=== PATIENT | female | born 1940 | race Caucasian/White ===

== ENCOUNTER → 2016-11-05 | Outpatient (CLI) | payer MEDICARE ==
[~2016-11-05] MED LIST: ALENDRONATE SOD70 M1 PO; ASPIRIN81 M1 PO; COMBIVENT RESPIM4 GM INH; COREG12.5 M1 PO; COZAAR50 M1 PO; FLAGYL250 MG PO; FLONASE0.05 MG/AC NS; FOSAMAX70 M1 PO; HYDROCHLOROTHIA25 MG PO; KEFLEX500 MG PO; KLOR-CON M1010 MEQ PO; LEVOFLOXACIN500 MG PO; LISINOPRIL10 MG PO; LOSARTAN POTASS50 M1 PO; MOTRIN100 M1 PO; NEXIUM40 MG PO; OXYBUTYNIN5 MG PO; PAXIL20 M1 PO; PROAIR HFA0.09 MG/AC IH; SIMVASTATIN40 MG PO; TRAMADOL HCL50 MG PO; VERAPAMIL ER240 MG PO; VITAMIN D32000 UNIT PO; XANAX0.25 MG PO; XANAX0.5 MG PO
[2016-11-05 09:57] LABS: BASO # 0.1 10*3/uL (0.0-0.1); BASO % 2.4 % (0.0-1.0); EOS # 0.2 10*3/uL (0.0-0.4); EOS % 3.8 % (1.0-4.0); HEMATOCRIT 39.4 % (37.0-47.0); HEMOGLOBIN 12.7 g/dl (12.0-16.0); LYMPH # 1.6 10*3/uL (1.3-4.4); LYMPH % 37.9 % (27.0-41.0); MEAN CORPUSCULAR HGB 31.6 pg (27.0-31.0); MEAN CORPUSCULAR HGB CONC 32.2 g/dl (33.0-37.0); MEAN PLATELET VOLUME 10.1 fl (9.6-12.3); MONO # 0.4 10*3/uL (0.1-1.0); MONO % 9.9 % (3.0-9.0); NEUT % 45.8 % (47.0-73.0); PLATELET COUNT AUTOMATED 136 10*3/uL (130-400); RED BLOOD COUNT 4.02 10*6/uL (4.10-5.10); RED CELL DISTRI WIDTH 13.9 % (0-14.5); WHITE BLOOD COUNT 4.3 10*3/uL (4.8-10.8)
[2016-11-05 10:29] LABS: POTASSIUM 3.5 mmol/L (3.5-5.1)
== END | disposition home or self-care (01) ==
LOC: LAB 08:59
PROVIDERS: Internal Medicine Cardiovascular Disease
DX: I10 Essential (primary) hypertension (principal); R53.83 Other fatigue

== ENCOUNTER → 2016-11-07 | Outpatient (CLI) | payer MEDICARE ==
--- NOTE | ~2016-11-07 | ST ---
[place], [place] EXERCISE STRESS TEST REPORT NAME: VICTORINA GONZALEZ UNIT #: [id number] ROOM: DOCTOR: ANCELMO MURO [facility],[place] BIRTHDATE: [birth year] DOS: 11/07/2016 BRIAN SCAN SESTAMIBI Received Lexiscan 0.4 mg over 10 seconds. Heart rate is 60. No ischemic changes on the EKG. No complications noted. Isotope was injected. Myocardial perfusion scan to follow. NENITA AG MD CM:STRESS:EXERCISE STRESS TEST REPORT [id number] [facility]
== END | disposition home or self-care (01) ==
LOC: CARD 01:41
DX: R07.9 Chest pain, unspecified (principal); R06.2 Wheezing; I10 Essential (primary) hypertension; R53.83 Other fatigue; R53.81 Other malaise; R00.2 Palpitations

== ENCOUNTER → 2017-03-24 | Outpatient (CLI) | payer MEDICARE | END | disposition home or self-care (01) | LOC: US 12:46 | DX: I65.23 Occlusion and stenosis of bilateral carotid arteries (principal) ==

== ENCOUNTER 2017-06-02 13:44 | Inpatient (IN) | payer MEDICARE ==
[~2017-06-02] VITALS: Ht 167.6 cm; Wt 52.3 kg
--- NOTE | ~2017-06-02 | CON ---
[place], [place] REPORT OF CONSULTATION NAME: VICTORINA GONZALEZ UNIT #: [id number] ROOM: 506 [facility] [birth year] DOS: HISTORY OF PRESENT ILLNESS: The patient came in with recurrent precordial chest pain substernal, burning sensation on and off for the last 2 months that got progressively worse for the last 2 weeks and prior to coming to the emergency room ____ more than 2 hours. The patient also has dyspnea and fatigue. No syncopal presyncope. The patient has myocardial infarction 6 years ago and the patient did not have any recent workup to evaluate for ischemia or disease, but represented with progressive increase in troponin. Subsequently, ____ but the renal function is good. GFR and creatinine is normal. The patient with a previous history of coronary artery disease, gastroesophageal reflux disease, anxiety, hypertension, depression, and dyslipidemia. PAST SURGICAL HISTORY: Appendectomy, cholecystectomy, and hysterectomy. SOCIAL HISTORY: No alcohol or drug abuse. Light smoker for 10 years, quit since 2010. FAMILY HISTORY: Father of old age. Mother with history of emphysema. Brother with history of myocardial infarction. Son at 42, who had a heart attack. ALLERGIES: THE PATIENT IS ALLERGIC TO IVP DYE, PENICILLIN, LISINOPRIL, AND NAPROXEN. MEDICATIONS: The patient is on albuterol, 81 mg of aspirin, Xanax, carvedilol, vitamin D3, Losartan, paroxetine, and simvastatin 40 mg daily at bedtime. PHYSICAL EXAMINATION: VITAL SIGNS: Stable. GENERAL: Alert, not in any acute distress. NECK: Supple. LUNGS: No rales. HEART: S1, S2 regular. No gallops. ABDOMEN: Soft. Color is good, not diaphoretic. RECTAL AND GENITAL: Deferred. SKIN: Warm and dry. EXTREMITIES: No cyanosis. NEUROLOGICAL: No gross focal neurological deficit noted. LABORATORY DATA: Troponin went up to 0.09 and 0.09. CBC and renal function is unremarkable. DIAGNOSES: Acute coronary syndrome, non-ST elevation myocardial infarction ____, history of coronary artery disease, hypertension, dyslipidemia. PLAN: Coronary arteriography, possible revascularization. Options, procedure, complications, morbidity, mortality, and risks were explained. [place], [place] REPORT OF CONSULTATION NAME: VICTORINA GONZALEZ UNIT #: [id number] ROOM: 506 DOCTOR: ANCELMO MURO [facility],[place] BIRTHDATE: [birth year] NENITA AG MD CM:CONSTR:REPORT OF CONSULTATION 1055 06/03/17 1445 interface SERENA HEBERT DO and ANGELA SAMAYOA DO
--- NOTE | ~2017-06-02 | EKG ---
[place], [place] ELECTROCARDIOGRAM REPORT NAME: VICTORINA GONZALEZ UNIT #: [id number] ROOM: 506 DOCTOR: ANCELMO MURO [facility],[place] BIRTHDATE: [birth year] DOS: 06/02/2017 TIME: 1659 CONCLUSION: 1. Sinus rhythm. 2. Left ventricular hypertrophy, cannot exclude old inferior wall infarction. 3. ST changes for lateral leads may suggest myocardial ischemia and PACs. NENITA AG MD CM:EKGRPT:ELECTROCARDIOGRAM REPORT [id number] 1357 NENITA AG MD [facility]
--- NOTE | ~2017-06-02 | EKG ---
[place], [place] ELECTROCARDIOGRAM REPORT NAME: VICTORINA GONZALEZ UNIT #: [id number] ROOM: 506 DOCTOR: ANCELMO MURO [facility],[place] BIRTHDATE: [birth year] DOS: 06/02/2017 TIME: 1939 CONCLUSION: 1. Sinus rhythm. 2. Left ventricular hypertrophy may be considered. 3. Intraventricular conduction delay and ST changes for lateral leads were made, suggest myocardial ischemia. NENITA AG MD CM:EKGRPT:ELECTROCARDIOGRAM REPORT [id number] 1353 NENITA AG MD [facility]
--- NOTE | ~2017-06-02 | EKG ---
[place], [place] ELECTROCARDIOGRAM REPORT NAME: VICTORINA GONZALEZ UNIT #: [id number] ROOM: 506 DOCTOR: ANCELMO MURO [facility],[place] BIRTHDATE: [birth year] DOS: 06/02/2017 TIME: 1354 CONCLUSION: 1. Sinus rhythm. 2. Cannot exclude old inferior wall infarction. 3. Left ventricular hypertrophy. 4. Left axis ST changes suggest myocardial ischemia. NENITA AG MD CM:EKGRPT:ELECTROCARDIOGRAM REPORT [id number] 1359 NENITA AG MD [facility]
[2017-06-02 14:13] VITALS: BP 195/84
[2017-06-02 14:22] LABS: BASO # 0.1 10*3/uL (0.0-0.1); BASO % 1.2 % (0.0-1.0); EOS # 0.1 10*3/uL (0.0-0.4); EOS % 1.8 % (1.0-4.0); HEMATOCRIT 39.3 % (37.0-47.0); HEMOGLOBIN 13.2 g/dl (12.0-16.0); LYMPH # 1.9 10*3/uL (1.3-4.4); LYMPH % 28.1 % (27.0-41.0); MEAN CELL VOLUME 95.2 fl (81.0-99.0); MEAN CORPUSCULAR HGB CONC 33.6 g/dl (33.0-37.0); MEAN PLATELET VOLUME 11.3 fl (9.6-12.3); MONO # 0.7 10*3/uL (0.1-1.0); MONO % 9.6 % (3.0-9.0); NEUT % 59.2 % (47.0-73.0); PLATELET COUNT AUTOMATED 239 10*3/uL (130-400); RED BLOOD COUNT 4.13 10*6/uL (4.10-5.10); RED CELL DISTRI WIDTH 14.4 % (0-14.5); WHITE BLOOD COUNT 6.8 10*3/uL (4.8-10.8)
[2017-06-02 14:57] LABS: ACT PARTIAL THROMBO TIME 25.5 SECONDS (20.8-31.5); INTERNATIONAL NORM RATIO 1.2 (2.0-3.5)
[2017-06-02 15:15] LABS: ALBUMIN 3.4 gm/dl (3.1-4.5); ALKALINE PHOSPHATASE 44 U/L (45-117); BUN 16 mg/dl (7-24); CHLORIDE 107 mmol/L (98-107); CREATININE 1.04 mg/dL (0.55-1.02); SGOT/AST 23 IU/L (3-35); SGPT/ALT 24 U/L (12-78); SODIUM 142 mmol/L (136-145); TOTAL PROTEIN 7.1 gm/dL (6.4-8.2)
[2017-06-02 15:16] LABS: TROPONIN I 0.025 ng/ml (<0.045)
[2017-06-02 15:24] VITALS: BP 152/90
[2017-06-02 16:04] VITALS: BP 160/97
[2017-06-02 17:15] VITALS: BP 120/86
[2017-06-02] MEDS ORDERED: MEGACE40 MG PO (18:02)
[2017-06-02] MEDS ORDERED: IMDUR SA30 MG PO (18:03)
[2017-06-02 19:42] VITALS: BP 151/92
[2017-06-03] VITALS: BP 150/74
[2017-06-03 00:27] LABS: CKMB 1.2 ng/ml (0.5-3.6)
[2017-06-03 00:32] LABS: TROPONIN I 0.09 ng/ml (<0.045)
[2017-06-03 06:29] LABS: BASO # 0.1 10*3/uL (0.0-0.1); BASO % 0.7 % (0.0-1.0); EOS # 0.2 10*3/uL (0.0-0.4); EOS % 1.5 % (1.0-4.0); HEMATOCRIT 38.1 % (37.0-47.0); HEMOGLOBIN 12.4 g/dl (12.0-16.0); LYMPH # 1.9 10*3/uL (1.3-4.4); LYMPH % 19.2 % (27.0-41.0); MEAN CELL VOLUME 96.9 fl (81.0-99.0); MEAN CORPUSCULAR HGB 31.6 pg (27.0-31.0); MEAN CORPUSCULAR HGB CONC 32.5 g/dl (33.0-37.0); MEAN PLATELET VOLUME 10.3 fl (9.6-12.3); MONO # 1.1 10*3/uL (0.1-1.0); NEUT # 6.7 10*3/uL (2.3-7.9); NEUT % 67.3 % (47.0-73.0); RED BLOOD COUNT 3.93 10*6/uL (4.10-5.10); RED CELL DISTRI WIDTH 14.2 % (0-14.5)
[2017-06-03 06:38] LABS: PLATELET COUNT AUTOMATED 158 10*3/uL (130-400)
[2017-06-03 06:53] LABS: ALBUMIN 2.9 gm/dl (3.1-4.5); ALKALINE PHOSPHATASE 36 U/L (45-117); BUN 16 mg/dl (7-24); CHLORIDE 111 mmol/L (98-107); FREE T4 0.98 ng/dl (0.76-1.46); PHOSPHOROUS 3.2 mg/dL (2.5-4.9); POTASSIUM 3.9 mmol/L (3.5-5.1); SGOT/AST 22 IU/L (3-35); SGPT/ALT 20 U/L (12-78); SODIUM 142 mmol/L (136-145); TOTAL PROTEIN 6.1 gm/dL (6.4-8.2)
[2017-06-03 08:00] VITALS: BP 115/98
[2017-06-03 08:15] LABS: VITAMIN D, 25-HYDROXY 53.3 ng/mL (30-100)
[2017-06-03 11:39] LABS: BASO # 0.1 10*3/uL (0.0-0.1); BASO % 0.8 % (0.0-1.0); EOS # 0.1 10*3/uL (0.0-0.4); EOS % 1.7 % (1.0-4.0); HEMATOCRIT 38.4 % (37.0-47.0); HEMOGLOBIN 12.6 g/dl (12.0-16.0); LYMPH # 1.4 10*3/uL (1.3-4.4); LYMPH % 17.1 % (27.0-41.0); MEAN CELL VOLUME 96.5 fl (81.0-99.0); MEAN CORPUSCULAR HGB 31.7 pg (27.0-31.0); MEAN CORPUSCULAR HGB CONC 32.8 g/dl (33.0-37.0); MEAN PLATELET VOLUME 9.7 fl (9.6-12.3); MONO # 0.7 10*3/uL (0.1-1.0); MONO % 8.5 % (3.0-9.0); NEUT # 6.1 10*3/uL (2.3-7.9); NEUT % 71.7 % (47.0-73.0); PLATELET COUNT AUTOMATED 156 10*3/uL (130-400); RED BLOOD COUNT 3.98 10*6/uL (4.10-5.10); RED CELL DISTRI WIDTH 14.2 % (0-14.5); WHITE BLOOD COUNT 8.4 10*3/uL (4.8-10.8)
[2017-06-03 11:48] LABS: ACT PARTIAL THROMBO TIME 30.6 SECONDS (20.8-31.5); INTERNATIONAL NORM RATIO 1.2 (2.0-3.5)
[2017-06-03 12:00] VITALS: BP 108/48
[2017-06-03 16:00] VITALS: BP 108/48
[2017-06-03 20:00] VITALS: BP 123/58
[2017-06-04] VITALS: BP 126/60
[2017-06-04 04:00] VITALS: BP 147/70
== END 2017-06-04 05:30 | disposition other institution (70) | DRG 189 ==
LOC: ED 13:44 → EDHOLD 15:33 → 5E 15:33
PROVIDERS: Internal Medicine; Internal Medicine Cardiovascular Disease; Student in an Organized Health Care Education/Training Program
DX: J96.00 Acute respiratory failure, unspecified whether with hypoxia or hypercapnia (principal); I24.9 Acute ischemic heart disease, unspecified; I50.22 Chronic systolic (congestive) heart failure; I13.0 Hypertensive heart and chronic kidney disease with heart failure and stage 1 through stage 4 chronic kidney disease, or unspecified chronic kidney disease; J44.1 Chronic obstructive pulmonary disease with (acute) exacerbation; E83.41 Hypermagnesemia; I16.1 Hypertensive emergency; Z68.1 Body mass index [BMI] 19.9 or less, adult; N18.3 Chronic kidney disease, stage 3 (moderate); R07.9 Chest pain, unspecified; R73.9 Hyperglycemia, unspecified; K21.9 Gastro-esophageal reflux disease without esophagitis; I25.119 Atherosclerotic heart disease of native coronary artery with unspecified angina pectoris; R63.6 Underweight; F32.9 Major depressive disorder, single episode, unspecified; M81.0 Age-related osteoporosis without current pathological fracture; F41.1 Generalized anxiety disorder; E78.00 Pure hypercholesterolemia, unspecified; I25.2 Old myocardial infarction; Z90.49 Acquired absence of other specified parts of digestive tract; Z90.710 Acquired absence of both cervix and uterus; Z79.82 Long term (current) use of aspirin; Z87.891 Personal history of nicotine dependence; Z79.899 Other long term (current) drug therapy; Z88.0 Allergy status to penicillin; Z88.8 Allergy status to other drugs, medicaments and biological substances; Z91.041 Radiographic dye allergy status; Z82.49 Family history of ischemic heart disease and other diseases of the circulatory system; Z83.6 Family history of other diseases of the respiratory system

== ENCOUNTER 2019-02-26 01:40 | Inpatient (IN) | payer MEDICARE ==
[~2019-02-26] VITALS: Ht 167.6 cm; Wt 39.6 kg
[~2019-02-26 01:40] MED LIST changes: +ACCUNEB 0.1.25 MG/1 INH; +FLONASE ALLERG9.9 ML NAS; +IMDUR SA30 MG PO; +LEXAPRO20 MG PO; +MEGACE40 MG PO; +POTASSIUM CHLO10 ME5 PO; +PREDNISONE10 MG PO; +PROAIR HFA8.5 GM INH; +SYMB160 INH; +VIBRAMYCIN100 MG PO; +VITAMIN D5000 UNIT PO; +ZOFRAN4 MG PO
[2019-02-26 01:45] VITALS: BP 182/74
[2019-02-26 02:07] LABS: BASO % 0.6 % (0.0-1.0); EOS # 0.1 10*3/uL (0.0-0.4); EOS % 1.4 % (1.0-4.0); HEMATOCRIT 43.9 % (37.0-47.0); HEMOGLOBIN 13.3 g/dl (12.0-16.0); MEAN CORPUSCULAR HGB 31.8 pg (27.0-31.0); MEAN CORPUSCULAR HGB CONC 30.3 g/dl (33.0-37.0); MEAN PLATELET VOLUME 10.2 fl (9.6-12.3); MONO # 0.7 10*3/uL (0.1-1.0); MONO % 9.3 % (3.0-9.0); NEUT # 4.5 10*3/uL (2.3-7.9); NEUT % 61.6 % (47.0-73.0); PLATELET COUNT AUTOMATED 121 10*3/uL (130-400); RED BLOOD COUNT 4.18 10*6/uL (4.10-5.10); RED CELL DISTRI WIDTH 14.1 % (0-14.5); WHITE BLOOD COUNT 7.2 10*3/uL (4.8-10.8)
[2019-02-26 02:21] LABS: ALBUMIN 3.5 gm/dl (3.1-4.5); ALKALINE PHOSPHATASE 46 U/L (45-117); BUN 25 mg/dl (7-24); CHLORIDE 107 mmol/L (98-107); CREATININE 0.92 mg/dL (0.55-1.02); POTASSIUM 4.2 mmol/L (3.5-5.1); SGOT/AST 41 IU/L (3-35); SGPT/ALT 48 U/L (12-78); SODIUM 146 mmol/L (136-145); TOTAL PROTEIN 6.8 gm/dL (6.4-8.2)
[2019-02-26 02:22] LABS: TROPONIN I 0.031 ng/ml (<0.045)
[2019-02-26 02:25] LABS: ACT PARTIAL THROMBO TIME 25.6 SECONDS (20.0-32.1); INTERNATIONAL NORM RATIO 1.1 (2.0-3.5)
--- NOTE | 2019-02-26 03:00 | NUR ---
REPORT FROM RIDDHI RN, ASSUMED CARE OF PT, PT RESTING QUIETLY, WITH FAMILY AT BEDSIDE, CALL NOONAN IN REACH
--- NOTE | 2019-02-26 03:10 | NUR ---
RESP IN TO DRAW ABG ORDERED
[2019-02-26 03:24] LABS: ABG BASE EXCESS 6.4 mmol/L (-2.0-2.0); ABG HCO3 33.4 mmol/l (22-26); ABG O2 SATURATION 98.1 % (95-97); ARTERIAL BLOOD GAS PCO2 62.1 mmHg (35-45); ARTERIAL BLOOD GAS PH 7.35 (7.35-7.45)
[2019-02-26 03:42] VITALS: BP 165/62
--- NOTE | 2019-02-26 04:15 | NUR ---
Time: 414 A 78 year old FEMALE admitted to 5E under services of EDWIGE CORTEZ DO. Pt. arrived via stretcher from ER. Chief complaint: DON. KRISTINE VILLALTA
--- NOTE | 2019-02-26 04:15 | NUR ---
PT ADMITTED TO 5TH FLOOR ON TELE,SR, RESP EASY ON 2 L/NC, SALINE LOCK PATENT WITH 0.9NS AND LEVAQUIN INFUSING VIA PUMP ORDERED, WITH NO REDNESS OR SWELLING, BELONGINGS WITH PT
--- NOTE | 2019-02-26 05:16 | NUR ---
CRITICAL LAB RECEIVED TROPONIN 0.069.
--- NOTE | 2019-02-26 05:18 | NUR ---
NOTIFIED OF CRTICAL TRPONIN OF 0.069.
--- NOTE | 2019-02-26 06:26 | NUR ---
PT TRANSFERRED TO UNIT PER DR. CARABALLO FOR CLOSER OBSERVATION AT THIS TIME. BELONGINGS SENT WITH PT. EXPLAINED TO PT REASON FOR BEING TRANSFERRED.
[2019-02-26 06:30] VITALS: BP 102/70
--- NOTE | 2019-02-26 06:55 | NUR ---
RECEIVED IN CCU#5 VAI BED WITH BELONGINGSG. CALL LIGHT IN REACH. ORIENTED TO ROOM. IV FLUIDS INFUSING. 2ND IV STARTED RFA WTIH #22 ANGIO AFTER ROUTINE PREP. STERIL DRSG TO SITE. HEPAIN GTT STARTED PER ORDERED. PT RESTING IN BED WITH HOB ELEVATED. DENIES C/O'S CHEST PAIN OR DISCOMFORT. PULSE OX 100% OB 2L.
[2019-02-26] MEDS ORDERED: ABILIFY5 MG PO (07:11)
--- NOTE | 2019-02-26 07:12 | NUR ---
DR. AG NOTIFIED OF CONSULT. TO BE CALLED WITH NEXT TROPONIN.
--- NOTE | 2019-02-26 07:13 | NUR ---
DR. BETH NOTIFIED OF CONSULT.
[2019-02-26 08:24] LABS: BASO % 0.3 % (0.0-1.0); EOS % 0.1 % (1.0-4.0); HEMATOCRIT 40.3 % (37.0-47.0); HEMOGLOBIN 12.4 g/dl (12.0-16.0); LYMPH # 0.7 10*3/uL (1.3-4.4); LYMPH % 9.4 % (27.0-41.0); MEAN CELL VOLUME 103.6 fl (81.0-99.0); MEAN CORPUSCULAR HGB 31.9 pg (27.0-31.0); MEAN CORPUSCULAR HGB CONC 30.8 g/dl (33.0-37.0); MEAN PLATELET VOLUME 10.4 fl (9.6-12.3); MONO # 0.1 10*3/uL (0.1-1.0); MONO % 0.8 % (3.0-9.0); NEUT # 6.5 10*3/uL (2.3-7.9); PLATELET COUNT AUTOMATED 106 10*3/uL (130-400); RED BLOOD COUNT 3.89 10*6/uL (4.10-5.10); WHITE BLOOD COUNT 7.3 10*3/uL (4.8-10.8)
--- NOTE | 2019-02-26 08:30 | NUR ---
message left for Dr Dickinson
[2019-02-26 08:36] LABS: ALBUMIN 3.1 gm/dl (3.1-4.5); ALKALINE PHOSPHATASE 34 U/L (45-117); BUN 22 mg/dl (7-24); CHLORIDE 105 mmol/L (98-107); CHOLESTEROL 130 mg/dL (<200); CREATININE 0.69 mg/dL (0.55-1.02); HDL CHOLESTEROL 82 mg/dl (40-60); LDL CHOLESTEROL 41 mg/dL (9-159); SGOT/AST 37 IU/L (3-35); SGPT/ALT 42 U/L (12-78); SODIUM 142 mmol/L (136-145); TOTAL PROTEIN 6.2 gm/dL (6.4-8.2); TRIGLYCERIDES 36 mg/dl (<150); VLDL CHOLESTEROL 7 mg/dL (6-40)
[2019-02-26 09:06] LABS: VITAMIN D, 25-HYDROXY 53.9 ng/mL (30-100)
--- NOTE | 2019-02-26 09:34 | NUR ---
PHYSICAL THERAPY Nursing screen received and chart reviewed. Physical therapy order received when patient was on floor 5. Patient transferred to ICCU after order received. Please re-order PT evaluation when medically stable and able to participate. Thank you. Thuy Steven,PT,DPT
[2019-02-26 11:37] LABS: BILIRUBIN NEGATIVE (NEGATIVE); BLOOD NEGATIVE (NEGATIVE); CLARITY CLEAR (CLEAR); COLOR YELLOW (YELLOW); GLUCOSE NEGATIVE (NEGATIVE); KETONE NEGATIVE (NEGATIVE); LEUKO ESTERASE NEGATIVE (NEGATIVE); NITRITE NEGATIVE (NEGATIVE); UROBILINOGEN 0.2 E.U./dl (0.2-1.0)
[2019-02-26 11:45] LABS: BACTERIA TRACE; MUCOUS TRACE
--- NOTE | 2019-02-26 11:54 | NUR ---
Dr Dickinson called in earlier. Dr Giraldo aware of what Dr Dickinson said. Meds started per orders. Patient sitting up in bed - weak when getting up - will encourage Walker when up
[2019-02-26 12:00] VITALS: BP 156/61
--- NOTE | 2019-02-26 14:40 | NUR ---
MOVES TO 525 VIA WHEEL CHAIR -JOSUE ECKERT
[2019-02-26 16:00] VITALS: BP 136/44
[2019-02-26 20:00] VITALS: BP 124/60
[2019-02-27] VITALS: BP 136/64
[2019-02-27 08:00] VITALS: BP 118/52
--- NOTE | 2019-02-27 10:12 | NUR ---
DR MELISSA ROUNDED AND SEEN PT. ORDERES RECIEVED.
--- NOTE | 2019-02-27 11:25 | NUR ---
SPOKE TO DAUGHTER AT BEDSIDE. UPDATED FAMILY AND PT ON PLAN OF CARE.RESPS EASY ON RA.VOICES NO OTHER NEEDS AT THIS TIME. CALL LIGHT IN REACH.
[2019-02-27 12:00] VITALS: BP 103/50
--- NOTE | 2019-02-27 14:52 | NUR ---
PT UP IN CHAIR AT BEDSIDE. VOICES NO C/O.RESPS EASY ON 2LNC.TOLERATING WELL.CALL LIGHT IN REACH.
--- NOTE | 2019-02-27 15:32 | NUR ---
ASSISTED PT BACK TO BED. PT TOLERATED WELL. PT ACTUALLY A STANDBY ASSIST. GAIT SLOW AND STEADY.RESPS EASY ON 2L.DENIES SOB.VOICES NO OTHER NEEDS AT THIS TIME. CALL LIGHT IN REACH.
[2019-02-27 16:00] VITALS: BP 138/56
[2019-02-27 20:00] VITALS: BP 120/59
[2019-02-28] VITALS: BP 112/53
[2019-02-28 08:00] VITALS: BP 128/64
--- NOTE | 2019-02-28 09:00 | NUR ---
UPON ENTERING ROOM, PT IS AWAKE, ALERT AND ORIENTED. SPEECH IS APPROPRIATE. NO STATED COMPLAINTS. NO S/S OF DISTRESS OR SOB. 2L NC INTACT. DENIES PAIN AT THIS TIME. BED IN LOWEST LOCKED POSITION AND CALL LIGHT WITHIN REACH. WILL CONTINUE TO MONITOR.
[2019-02-28] MEDS ORDERED: DOXYCYCLINE100 M3 PO (09:49)
[2019-02-28] MEDS ORDERED: IMDUR SA60 M1 PO (09:49)
[2019-02-28] MEDS ORDERED: CLOPIDOGREL75 MG PO (09:49)
[2019-02-28] MEDS ORDERED: PREDNISONE10 MG PO (09:49)
--- NOTE | 2019-02-28 11:30 | NUR ---
PT'S DAUGHTER NOTIFIED OF DISCHARGE.
--- NOTE | 2019-02-28 12:50 | NUR ---
Discharge instructions reviewed with patient/family. Patient receptive and verbalizes understanding. Follow-up care arranged. Written instructions given to patient/family. DEE ESTEVEZ
== END 2019-02-28 13:23 | disposition home or self-care (01) | DRG 193 ==
LOC: ED 01:40 → ICCU 03:22 → EDHOLD 03:22 → 5E 03:32 → ICCU 06:25 → 5E 14:11
PROVIDERS: Emergency Medicine Emergency Medical Services; Internal Medicine; ADMIT Internal Medicine
DX: J18.9 Pneumonia, unspecified organism (principal); J96.21 Acute and chronic respiratory failure with hypoxia; J96.22 Acute and chronic respiratory failure with hypercapnia; J44.1 Chronic obstructive pulmonary disease with (acute) exacerbation; J44.0 Chronic obstructive pulmonary disease with (acute) lower respiratory infection; E87.0 Hyperosmolality and hypernatremia; I42.9 Cardiomyopathy, unspecified; Z68.1 Body mass index [BMI] 19.9 or less, adult; R73.9 Hyperglycemia, unspecified; N18.3 Chronic kidney disease, stage 3 (moderate); I12.9 Hypertensive chronic kidney disease with stage 1 through stage 4 chronic kidney disease, or unspecified chronic kidney disease; E78.00 Pure hypercholesterolemia, unspecified; I25.10 Atherosclerotic heart disease of native coronary artery without angina pectoris; J45.40 Moderate persistent asthma, uncomplicated; D75.89 Other specified diseases of blood and blood-forming organs; F32.9 Major depressive disorder, single episode, unspecified; D69.6 Thrombocytopenia, unspecified; I44.7 Left bundle-branch block, unspecified; J20.9 Acute bronchitis, unspecified; F41.1 Generalized anxiety disorder; M81.0 Age-related osteoporosis without current pathological fracture; R63.6 Underweight; Z87.891 Personal history of nicotine dependence; Z99.81 Dependence on supplemental oxygen; Z88.0 Allergy status to penicillin; Z88.8 Allergy status to other drugs, medicaments and biological substances; Z88.6 Allergy status to analgesic agent; Z91.041 Radiographic dye allergy status; Z87.01 Personal history of pneumonia (recurrent); Z90.49 Acquired absence of other specified parts of digestive tract; Z90.710 Acquired absence of both cervix and uterus; Z82.5 Family history of asthma and other chronic lower respiratory diseases; Z82.49 Family history of ischemic heart disease and other diseases of the circulatory system; Z79.899 Other long term (current) drug therapy; Z79.82 Long term (current) use of aspirin

== ENCOUNTER 2019-03-02 10:11 | Inpatient (IN) | payer MEDICARE ==
[2019-03-02] VITALS (8 sets, daily range): BP systolic 103–192; BP diastolic 60–96
[~2019-03-02] VITALS: Ht 167.6 cm; Wt 41.7 kg
[~2019-03-02 10:11] MED LIST changes: +ABILIFY5 MG PO; +CLOPIDOGREL75 MG PO; +DOXYCYCLINE100 M3 PO; +IMDUR SA60 M1 PO
--- NOTE | 2019-03-02 10:50 | NUR ---
DR GTZ SPOKE TO FAMILY WHERE THE FAMILY STATED THAT THE PT HAS VERBALLY TOLD THEM THAT SHE WANTS TO BE A FULL CODE AND THE PT WANTS ALL INTERVENTIONS THAT ARE NEEDED.
[2019-03-02 10:54] LABS: BASO % 0.1 % (0.0-1.0); EOS % 0.1 % (1.0-4.0); HEMATOCRIT 41.2 % (37.0-47.0); HEMOGLOBIN 12.7 g/dl (12.0-16.0); LYMPH # 0.9 10*3/uL (1.3-4.4); MEAN CORPUSCULAR HGB 32.1 pg (27.0-31.0); MEAN CORPUSCULAR HGB CONC 30.8 g/dl (33.0-37.0); MEAN PLATELET VOLUME 10.4 fl (9.6-12.3); MONO # 0.7 10*3/uL (0.1-1.0); MONO % 6.2 % (3.0-9.0); NEUT # 8.7 10*3/uL (2.3-7.9); NEUT % 83.4 % (47.0-73.0); PLATELET COUNT AUTOMATED 124 10*3/uL (130-400); RED BLOOD COUNT 3.96 10*6/uL (4.10-5.10); RED CELL DISTRI WIDTH 14.1 % (0-14.5); WHITE BLOOD COUNT 10.4 10*3/uL (4.8-10.8)
[2019-03-02 11:05] LABS: ALBUMIN 2.7 gm/dl (3.1-4.5); ALKALINE PHOSPHATASE 35 U/L (45-117); BUN 23 mg/dl (7-24); CHLORIDE 105 mmol/L (98-107); CREATININE 0.72 mg/dL (0.55-1.02); POTASSIUM 4.2 mmol/L (3.5-5.1); SGOT/AST 75 IU/L (3-35); SGPT/ALT 106 U/L (12-78); SODIUM 142 mmol/L (136-145); TOTAL PROTEIN 5.8 gm/dL (6.4-8.2)
--- NOTE | 2019-03-02 11:43 | NUR ---
DR GTZ SAID IT IS NOT VITAL AT THIS TIME TO COLLECT URINE ON PT, INDICATING WE DO NOT NEED TO STRAIGHT CATH THE PT AT THIS TIME. IF THE PT NEEDS TO URINATE, WE WILL COLLECT SAMPLE AT THAT TIME.
[2019-03-02 12:55] LABS: BILIRUBIN NEGATIVE (NEGATIVE); BLOOD NEGATIVE (NEGATIVE); CLARITY CLEAR (CLEAR); COLOR YELLOW (YELLOW); GLUCOSE NEGATIVE (NEGATIVE); KETONE NEGATIVE (NEGATIVE); LEUKO ESTERASE NEGATIVE (NEGATIVE); NITRITE NEGATIVE (NEGATIVE); UROBILINOGEN 0.2 E.U./dl (0.2-1.0)
[2019-03-02 13:27] LABS: BACTERIA 1+; YEAST 1+
--- NOTE | 2019-03-02 13:30 | NUR ---
A 78, admitted to 5E, under the services of JUAN JOSE Watson DO with a diagnosis of COPD. Chief complaint is SHORTNESS OF BREATHE. Patient arrived via bed from ER. Monitor applied. Initial assessment completed. Vital signs taken and recorded. JUAN JOSE WATSON DO notified of admission to the unit. Orders received. See assessment for past medical history, medications and allergies. Patient and/or family oriented to unit. [address] visitation policy reviewed. Clothing/patient valuable form completed. JAIRO GRIDER
--- NOTE | 2019-03-02 15:10 | NUR ---
CALLED DR. WATSON AWARE PT TROPONIN LEVEL
--- NOTE | 2019-03-02 15:24 | NUR ---
DR. SONG CALLED AWARE OF CONSULT. WILL SEE IN AM.
--- NOTE | 2019-03-02 15:49 | NUR ---
SPOKE WITH DR. WATSON PT REQUESTING ENSURE WITH MEALS.
--- NOTE | 2019-03-02 17:27 | NUR ---
+ORTHOSTATIC BP. PT FELT LIGHTHEADED FROM SUPINE TO SITTING. SUPINE BP 168/65 WHILE STANDING BP WAS 141/60. ATTEMPTED TO NOTIFY . NO ANSWER.
--- NOTE | 2019-03-02 17:45 | NUR ---
NOTIFIED OF + ORTHOSTATIC BPs.
--- NOTE | 2019-03-02 20:24 | NUR ---
pt assessed and placed on treatment. sao2 was 93% on 4L. heart rate of 102. air movement. pt stated she was not okay. pt was short of breath. just came back from using the restroom with other health care worker. started treatment, went to my computer in the doorway, spoke with nurse. she had stated her sats were now in the 70's. pt was starring. not responsive but stilll sitting up. i tried to get the pt to to lay back in bed as she had herself propped up and holding her weight on one arm. family and i noticed her stare, i pulled the cord in the room and notified the desk to call for help. returned to pt. pt still breathing, still has heart rate. sats of 85% at the moment when rapid was called and heart rate of 120.
--- NOTE | 2019-03-02 20:28 | NUR ---
PT WALKED BACK TO BED FROM USING RESTROOM. SHORT OF BREATH ON 3L NC AND HAVING A VERY HARD TIME TRYING TO CATCH HER BREATH. RESPIRATORY CALLED. BREATHING TREATMENT GIVEN BUT PT STILL NOT FEELING BETTER AND STILL HAVING TROUBLE BREATHING. PULSE OX DROPPED TO 74% ON 10L WITH BREATHING TREATMENT GOING. BECAME UNRESPONSIVE. RAPID RESPONSE CALLED. PHYSICIANS AND MINE MOTOR ENGINEER TO BEDSIDE IMMEDIATELY. PT STILL UNRESPONSIVE AND UNABLE TO BE AROUSED WITH STERNAL RUB. CLENCHING TEETH. DENTURES REMOVED AND PT INTUBATED, STABILIZED AND TRANSFERRED TO ICU WITHOUT INCIDENT. REPORT GIVEN TO ERNESTO GILL. FAMILY AT HOSPITAL, VISITING AT TIME OF OCCURANCE.
--- NOTE | 2019-03-02 21:27 | NUR ---
ABG SENT. PT ON VENT FOR 15 MINUTES BEFORE IT WAS DRAWN
[2019-03-02 21:33] LABS: ABG BASE EXCESS -0.2 mmol/L (-2.0-2.0); ABG HCO3 27.8 mmol/l (22-26); ABG O2 SATURATION 98.6 % (95-97); ARTERIAL BLOOD GAS PH 7.264 (7.35-7.45)
--- NOTE | 2019-03-02 21:34 | NUR ---
PATIENT [facility] TO [facility] REPORT RECIEVED FROM PATRIZIA OROZCO
[2019-03-02 21:53] LABS: ALKALINE PHOSPHATASE 42 U/L (45-117); BUN 24 mg/dl (7-24); CHLORIDE 103 mmol/L (98-107); CREATININE 1.03 mg/dL (0.55-1.02); POTASSIUM 4.3 mmol/L (3.5-5.1); SGOT/AST 87 IU/L (3-35); SGPT/ALT 119 U/L (12-78); SODIUM 140 mmol/L (136-145); TOTAL PROTEIN 5.6 gm/dL (6.4-8.2)
[2019-03-02 22:00] LABS: TROPONIN I 0.075 ng/ml (<0.045)
[2019-03-02 22:32] LABS: HEMATOCRIT 35.6 % (37.0-47.0); HEMOGLOBIN 11.2 g/dl (12.0-16.0); MEAN CELL VOLUME 102.3 fl (81.0-99.0); MEAN CORPUSCULAR HGB 32.2 pg (27.0-31.0); MEAN CORPUSCULAR HGB CONC 31.5 g/dl (33.0-37.0); MEAN PLATELET VOLUME 10.8 fl (9.6-12.3); PLATELET COUNT AUTOMATED 114 10*3/uL (130-400); RED BLOOD COUNT 3.48 10*6/uL (4.10-5.10); RED CELL DISTRI WIDTH 14.1 % (0-14.5); WHITE BLOOD COUNT 10.1 10*3/uL (4.8-10.8)
[2019-03-02 22:49] LABS: PLATELET SUFFICIENCY LOW (NORMAL); TOTAL CELLS COUNTED 100 #CELLS
[2019-03-03] VITALS (8 sets, daily range): BP systolic 92–176; BP diastolic 57–83
[2019-03-03 03:09] LABS: HEMATOCRIT 37.2 % (37.0-47.0); HEMOGLOBIN 11.7 g/dl (12.0-16.0); LYMPH # 0.6 10*3/uL (1.3-4.4); LYMPH % 5.1 % (27.0-41.0); MEAN CELL VOLUME 100.3 fl (81.0-99.0); MEAN CORPUSCULAR HGB 31.5 pg (27.0-31.0); MEAN CORPUSCULAR HGB CONC 31.5 g/dl (33.0-37.0); MONO % 8.6 % (3.0-9.0); NEUT % 85.6 % (47.0-73.0); PLATELET COUNT AUTOMATED 97 10*3/uL (130-400); RED BLOOD COUNT 3.71 10*6/uL (4.10-5.10); RED CELL DISTRI WIDTH 14.1 % (0-14.5); WHITE BLOOD COUNT 11.7 10*3/uL (4.8-10.8)
[2019-03-03 03:24] LABS: ALBUMIN 2.7 gm/dl (3.1-4.5); ALKALINE PHOSPHATASE 32 U/L (45-117); BUN 25 mg/dl (7-24); CHLORIDE 105 mmol/L (98-107); CREATININE 0.87 mg/dL (0.55-1.02); PHOSPHOROUS 2.3 mg/dL (2.5-4.9); POTASSIUM 3.9 mmol/L (3.5-5.1); SGOT/AST 61 IU/L (3-35); SGPT/ALT 109 U/L (12-78); SODIUM 141 mmol/L (136-145); TOTAL PROTEIN 5.3 gm/dL (6.4-8.2)
[2019-03-03 07:19] LABS: ABG BASE EXCESS 6.4 mmol/L (-2.0-2.0); ABG HCO3 28.4 mmol/l (22-26); ABG O2 SATURATION 99.8 % (95-97); ARTERIAL BLOOD GAS PCO2 31.2 mmHg (35-45); ARTERIAL BLOOD GAS PH 7.567 (7.35-7.45)
--- NOTE | 2019-03-03 07:30 | NUR ---
PT REMAINS INTUBATED AND SEDATED. VSS. LUNG LINK DIM. BLOOD TINGED MUCUS SUCTIONED THROUGH ENDOTUBE. OGT PLACEMENT VERIFIED WITH AN AIR BOLUS. ABD. SOFT WITH ACTIVE BOWEL SOUNDS. ROBB PATENT FOR SMALL AMOUNT OF STRAW COLORED URINE. NO PERIPHERAL EDEMA NOTED AT THIS TIME. DR BETH IN TO SEE PT. VENT CHANGES MADE.
--- NOTE | 2019-03-03 08:00 | NUR ---
ECHOCARDIOGRAM BIENG DONE.
--- NOTE | 2019-03-03 08:42 | NUR ---
PT AWAKE AND OBEYING SIMPLE COMMANDS 5 MINUTES AFTER DIPRIVAN GTT TURNED OFF. DR BETH UPDATED. ORDER RECEIVED FOR CPAP 5/10 ABG IN 2 HOURS. RESP. THERAPIST NOTIFIED.
--- NOTE | 2019-03-03 08:50 | NUR ---
VENT SETTINGS CHANGED TO CPAP PER ORDER.
--- NOTE | 2019-03-03 09:30 | NUR ---
DR THRASHER IN TO SEE PT.
--- NOTE | 2019-03-03 09:40 | NUR ---
BACKUP VENTILATION TRIGGERED ON VENT BY PT. TAYO SUMMERS FROM RESP. THERAPY. HE WILL BE UP TO CHECK ON VENT.
--- NOTE | 2019-03-03 10:10 | NUR ---
PATIENT WAS ON A CPAP OF 10 PRESSURE SUPPORT/5 OF PEEP. WAS CONTACTED BY THE ICCU NURSE THAT THE VENT WAS ALARMING. WHEN ENTERING THE ROOM THE VENT HAD KICKED BACK ON TO ASSIST CONTROL VENTILATION. SHE HAD AN APNIC EVENT AT 0939 PER THE VENT ALARM HISTORY.CONTACTED THE POSTAL SORTING OFFICER, AND HE SAID TO PLACE THE PATIENT BACK ON A/C VENTILATION. WILL CONTINUE WEANING TRIALS TOMORROW PER THE DOCTOR.
--- NOTE | 2019-03-03 10:15 | NUR ---
PT PLACED BACK TO PREVIOUS VENT SETTINGS AFTER KRISTOPHER,RESP. THERAPIST, UPDATED DR BETH ON PT'S GOING APENIC AND BACK UP VENTILATION TRIGGERED. IV DIPRIVAN CONTINUED FOR LIGHT SEDATION PER DR BETH.
--- NOTE | 2019-03-03 10:24 | NUR ---
PT'S FAMILY IN TO VISIT. UPDATED THEM ON PT'S CONDITION AND PLAN OF CARE.
--- NOTE | 2019-03-03 10:30 | NUR ---
Driftman in to see patient. She is currently intubated. Will follow up at a later time. Discharge plan undecided.
[2019-03-03 12:28] LABS: URINE AMPHETAMINES < 1000 (1000ng/ml); URINE BARBITURATES < 200 (200ng/ml); URINE BENZODIAZEPINES > 200 (200ng/ml); URINE CANNABINOIDS (THC) < 50 (50ng/ml); URINE COCAINE < 300 (300ng/ml); URINE METHADONE < 300 (300ng/ml); URINE OPIATES > 300 (300ng/ml)
[2019-03-03 12:29] LABS: URINE PHENCYCLIDINE < 25 (25ng/ml)
--- NOTE | 2019-03-03 12:42 | NUR ---
PT RESTING. FAMILY AT BEDSIDE.
[2019-03-03 13:23] LABS: ABG BASE EXCESS 3.5 mmol/L (-2.0-2.0); ABG HCO3 27.8 mmol/l (22-26); ABG O2 SATURATION 99.3 % (95-97); ARTERIAL BLOOD GAS PCO2 41.1 mmHg (35-45); ARTERIAL BLOOD GAS PH 7.439 (7.35-7.45)
[2019-03-03 13:50] LABS: ACT PARTIAL THROMBO TIME 22.4 SECONDS (20.0-32.1); INTERNATIONAL NORM RATIO 1.1 (2.0-3.5)
--- NOTE | 2019-03-03 14:14 | NUR ---
BASELINE PTT WAS DRAWN. 22.4. HEPARIN PROTOCOL (DVT/PE) STARTED AT 18UNITS/KG AFTER SETTINGS VERIFIED WITH SOFYA SEPULVEDA. 3400 UNIT BOLUS GIVEN PTT <24.
[2019-03-03] MEDS ORDERED: PROPOFOL IV (15:54)
[2019-03-03] MEDS ORDERED: Ipratropium Brom3 ML NEB (15:54)
[2019-03-03] MEDS ORDERED: MUCINEX ER600 MG PO (15:54)
[2019-03-03] MEDS ORDERED: DIPHENHYDRAMINE25 M2 PO (15:54)
--- NOTE | 2019-03-03 15:54 | NUR ---
PT HAS BEEN ACCEPTED AT [facility], GOING TO ROOM E727. [facility] IS ON IT'S WAY.
--- NOTE | 2019-03-03 16:52 | NUR ---
PT DISCHARGED TO [facility]IA [facility]. PT REPORT CALLED TO RECEIVING NURSE AT [facility]. PT'S BELONGINGS INCLUDING HER DENTURES WENT WITH PT'S FAMILY.
== END 2019-03-03 16:52 | disposition short-term general hospital (02) | DRG 208 ==
LOC: ED 10:11 → EDHOLD 12:06 → ICCU 12:06 → 5E 12:34 → ICCU 20:57
PROVIDERS: Emergency Medicine; Internal Medicine; Internal Medicine Critical Care Medicine; ADMIT Internal Medicine
DX: J18.9 Pneumonia, unspecified organism (principal); J96.01 Acute respiratory failure with hypoxia; E43 Unspecified severe protein-calorie malnutrition; J44.1 Chronic obstructive pulmonary disease with (acute) exacerbation; I50.22 Chronic systolic (congestive) heart failure; I13.2 Hypertensive heart and chronic kidney disease with heart failure and with stage 5 chronic kidney disease, or end stage renal disease; Z68.1 Body mass index [BMI] 19.9 or less, adult; R74.0 Nonspecific elevation of levels of transaminase and lactic acid dehydrogenase [LDH]; R73.9 Hyperglycemia, unspecified; I45.81 Long QT syndrome; I25.10 Atherosclerotic heart disease of native coronary artery without angina pectoris; F32.9 Major depressive disorder, single episode, unspecified; F41.1 Generalized anxiety disorder; M81.0 Age-related osteoporosis without current pathological fracture; F41.9 Anxiety disorder, unspecified; Z99.81 Dependence on supplemental oxygen; N18.3 Chronic kidney disease, stage 3 (moderate); I25.2 Old myocardial infarction; Z88.0 Allergy status to penicillin; Z88.9 Allergy status to unspecified drugs, medicaments and biological substances; Z90.49 Acquired absence of other specified parts of digestive tract; Z90.710 Acquired absence of both cervix and uterus; Z83.6 Family history of other diseases of the respiratory system

== ENCOUNTER → 2019-11-11 | Outpatient (CLI) | payer MEDICARE ==
[~2019-11-11] MED LIST changes: +DIPHENHYDRAMINE25 M2 PO; +Ipratropium Brom3 ML NEB; +METOPROLOL SUCC25 M2 PO; +MIRTAZAPINE7.5 MG PO; +MUCINEX ER600 MG PO; +PROPOFOL IV
[2019-11-11 11:22] LABS: BASO # 0.1 10*3/uL (0.0-0.1); BASO % 0.8 % (0.0-1.0); EOS # 0.1 10*3/uL (0.0-0.4); EOS % 1.7 % (1.0-4.0); HEMATOCRIT 45.5 % (37.0-47.0); LYMPH # 1.9 10*3/uL (1.3-4.4); LYMPH % 25.9 % (27.0-41.0); MEAN CELL VOLUME 98.9 fl (81.0-99.0); MEAN CORPUSCULAR HGB 30.7 pg (27.0-31.0); MEAN PLATELET VOLUME 9.6 fl (9.6-12.3); MONO # 0.7 10*3/uL (0.1-1.0); MONO % 9.1 % (3.0-9.0); NEUT # 4.5 10*3/uL (2.3-7.9); NEUT % 62.1 % (47.0-73.0); PLATELET COUNT AUTOMATED 208 10*3/uL (130-400); RED CELL DISTRI WIDTH 14.4 % (0-14.5); WHITE BLOOD COUNT 7.3 10*3/uL (4.8-10.8)
[2019-11-11 11:50] LABS: BUN 17 mg/dl (7-24); CHLORIDE 105 mmol/L (98-107); POTASSIUM 3.7 mmol/L (3.5-5.1); SODIUM 141 mmol/L (136-145)
== END | disposition home or self-care (01) ==
LOC: LAB 10:43
PROVIDERS: Internal Medicine Cardiovascular Disease
DX: I10 Essential (primary) hypertension (principal)

== ENCOUNTER → 2019-12-16 | Outpatient (CLI) | payer MEDICARE | END | disposition home or self-care (01) | LOC: RAD 13:24 | DX: J44.9 Chronic obstructive pulmonary disease, unspecified (principal) ==

== ENCOUNTER 2020-08-31 12:06 | Inpatient (IN) | payer MEDICARE ==
[~2020-08-31] VITALS: Ht 167.6 cm; Wt 44.7 kg
[2020-08-31 12:11] VITALS: BP 147/63
[2020-08-31 12:29] LABS: BASO # 0.1 10*3/uL (0.0-0.1); BASO % 0.9 % (0.0-1.0); EOS % 0.5 % (1.0-4.0); HEMATOCRIT 41.1 % (37.0-47.0); LYMPH # 0.8 10*3/uL (1.3-4.4); LYMPH % 10.3 % (27.0-41.0); MEAN CELL VOLUME 103.8 fl (81.0-99.0); MEAN CORPUSCULAR HGB 30.1 pg (27.0-31.0); MONO # 0.7 10*3/uL (0.1-1.0); MONO % 8.6 % (3.0-9.0); NEUT % 79.4 % (47.0-73.0); PLATELET COUNT AUTOMATED 144 10*3/uL (130-400); RED BLOOD COUNT 3.96 10*6/uL (4.10-5.10); WHITE BLOOD COUNT 7.6 10*3/uL (4.8-10.8)
[2020-08-31 12:39] LABS: ACT PARTIAL THROMBO TIME 25.6 SECONDS (20.0-32.1); INTERNATIONAL NORM RATIO 1.1 (2.0-3.5)
[2020-08-31 12:44] LABS: ALBUMIN 3.1 gm/dl (3.1-4.5); ALKALINE PHOSPHATASE 50 U/L (45-117); BUN 13 mg/dl (7-24); CHLORIDE 103 mmol/L (98-107); CREATININE 0.69 mg/dL (0.55-1.02); LIPASE 124 U/L (73-393); POTASSIUM 3.7 mmol/L (3.5-5.1); SGOT/AST 29 IU/L (3-35); SGPT/ALT 27 U/L (12-78); SODIUM 143 mmol/L (136-145); TOTAL PROTEIN 6.8 gm/dL (6.4-8.2)
[2020-08-31 12:49] LABS: TROPONIN I 0.063 ng/ml (<0.045)
[2020-08-31 14:34] VITALS: BP 184/72
[2020-08-31 15:00] VITALS: BP 165/48
[2020-08-31] MEDS ORDERED: ANORO ELLIPTA1 EACH INH (15:52)
[2020-08-31] MEDS ORDERED: DRONABINOL2.5 MG PO (15:57)
[2020-08-31] MEDS ORDERED: NIFEDIPINE30 MG PO (15:58)
[2020-08-31] MEDS ORDERED: DIOVAN320 MG PO (15:58)
[2020-08-31 16:00] VITALS: BP 129/50
[2020-08-31 16:01] LABS: ABG BASE EXCESS 6.9 mmol/L (-2.0-2.0); ARTERIAL BLOOD GAS PH 7.343 (7.35-7.45); ARTERIAL BLOOD GAS PO2 92.8 (80-90)
[2020-08-31 17:06] LABS: BILIRUBIN Negative (Negative); BLOOD Negative (Negative); CLARITY Clear (Clear); COLOR Yellow (Yellow); GLUCOSE Negative (Negative); KETONE Negative (Negative); LEUKO ESTERASE 1+ (Negative); NITRITE Negative (Negative); PH 6.5 (4.5-8.0); SPECIFIC GRAVITY 1.015 (1.001-1.030); UROBILINOGEN 0.2 E.U./dl (0.0-1.0)
[2020-08-31 17:23] LABS: CALCIUM OXALATE CRYSTALS Trace; EPITHELIAL CELLS 31-40; WBC 21-30 wbc/hpf (0-5)
[2020-08-31 17:24] LABS: BACTERIA TRACE; MUCOUS TRACE
[2020-08-31 20:00] VITALS: BP 147/69
[2020-09-01] VITALS: BP 125/63
[2020-09-01 06:48] LABS: BASO % 0.2 % (0.0-1.0); HEMATOCRIT 38.3 % (37.0-47.0); LYMPH # 0.6 10*3/uL (1.3-4.4); LYMPH % 10.2 % (27.0-41.0); MEAN CELL VOLUME 101.1 fl (81.0-99.0); MEAN CORPUSCULAR HGB 30.3 pg (27.0-31.0); MEAN PLATELET VOLUME 10.6 fl (9.6-12.3); MONO # 0.1 10*3/uL (0.1-1.0); NEUT # 5.1 10*3/uL (2.3-7.9); NEUT % 88.1 % (47.0-73.0); PLATELET COUNT AUTOMATED 133 10*3/uL (130-400); RED BLOOD COUNT 3.79 10*6/uL (4.10-5.10); RED CELL DISTRI WIDTH 13.8 % (0-14.5); WHITE BLOOD COUNT 5.8 10*3/uL (4.8-10.8)
[2020-09-01 06:53] LABS: ACT PARTIAL THROMBO TIME 25.6 SECONDS (20.0-32.1); INTERNATIONAL NORM RATIO 1.2 (2.0-3.5)
[2020-09-01 06:58] LABS: ALBUMIN 2.9 gm/dl (3.1-4.5); BUN 14 mg/dl (7-24); CHLORIDE 98 mmol/L (98-107); POTASSIUM 3.6 mmol/L (3.5-5.1); SODIUM 142 mmol/L (136-145)
[2020-09-01 07:08] LABS: ALKALINE PHOSPHATASE 44 U/L (45-117); CHOLESTEROL 130 mg/dL (<200); CREATININE 0.74 mg/dL (0.55-1.02); FREE T4 0.94 ng/dl (0.76-1.46); HDL CHOLESTEROL 81 mg/dl (40-60); LDL CHOLESTEROL 38 mg/dL (9-159); SGOT/AST 50 IU/L (3-35); SGPT/ALT 42 U/L (12-78); TOTAL PROTEIN 6.3 gm/dL (6.4-8.2); TRIGLYCERIDES 56 mg/dl (<150); VLDL CHOLESTEROL 11 mg/dL (6-40)
[2020-09-01 08:00] VITALS: BP 131/59
[2020-09-01 12:00] VITALS: BP 127/58
[2020-09-01 16:00] VITALS: BP 150/56
[2020-09-01 20:00] VITALS: BP 135/54
[2020-09-02] VITALS: BP 114/61
[2020-09-02 06:26] LABS: BASO % 0.1 % (0.0-1.0); HEMATOCRIT 36.9 % (37.0-47.0); LYMPH # 0.8 10*3/uL (1.3-4.4); LYMPH % 7.8 % (27.0-41.0); MEAN CELL VOLUME 100.3 fl (81.0-99.0); MEAN CORPUSCULAR HGB 30.2 pg (27.0-31.0); MEAN CORPUSCULAR HGB CONC 30.1 g/dl (33.0-37.0); MEAN PLATELET VOLUME 10.2 fl (9.6-12.3); MONO # 0.4 10*3/uL (0.1-1.0); MONO % 3.6 % (3.0-9.0); NEUT # 8.7 10*3/uL (2.3-7.9); PLATELET COUNT AUTOMATED 147 10*3/uL (130-400); RED BLOOD COUNT 3.68 10*6/uL (4.10-5.10); RED CELL DISTRI WIDTH 14.2 % (0-14.5); WHITE BLOOD COUNT 9.8 10*3/uL (4.8-10.8)
[2020-09-02 06:29] LABS: BUN 19 mg/dl (7-24); CHLORIDE 96 mmol/L (98-107); CREATININE 0.74 mg/dL (0.55-1.02); POTASSIUM 3.5 mmol/L (3.5-5.1); SODIUM 141 mmol/L (136-145)
[2020-09-02 07:14] LABS: ABG BASE EXCESS 15.2 mmol/L (-2.0-2.0); ARTERIAL BLOOD GAS PH 7.36 (7.35-7.45)
[2020-09-02 08:00] VITALS: BP 126/76
[2020-09-02 10:31] LABS: ABG BASE EXCESS 20.7 mmol/L (-2.0-2.0); ARTERIAL BLOOD GAS PH 7.494 (7.35-7.45); ARTERIAL BLOOD GAS PO2 47.6 (80-90)
[2020-09-02 12:00] VITALS: BP 134/68
[2020-09-02 16:00] VITALS: BP 128/60
[2020-09-02 20:00] VITALS: BP 130/72
[2020-09-03] VITALS (7 sets, daily range): BP systolic 86–116; BP diastolic 32–61
[2020-09-03 05:47] LABS: ALBUMIN 2.7 gm/dl (3.1-4.5); ALKALINE PHOSPHATASE 35 U/L (45-117); BUN 23 mg/dl (7-24); CHLORIDE 97 mmol/L (98-107); CREATININE 0.93 mg/dL (0.55-1.02); POTASSIUM 2.9 mmol/L (3.5-5.1); SGOT/AST 38 IU/L (3-35); SGPT/ALT 35 U/L (12-78); SODIUM 140 mmol/L (136-145); TOTAL PROTEIN 5.8 gm/dL (6.4-8.2)
[2020-09-03 06:05] LABS: BASO % 0.1 % (0.0-1.0); LYMPH # 0.8 10*3/uL (1.3-4.4); LYMPH % 7.2 % (27.0-41.0); MEAN CELL VOLUME 100.8 fl (81.0-99.0); MEAN CORPUSCULAR HGB 29.7 pg (27.0-31.0); MEAN CORPUSCULAR HGB CONC 29.5 g/dl (33.0-37.0); MEAN PLATELET VOLUME 10.3 fl (9.6-12.3); MONO # 0.4 10*3/uL (0.1-1.0); MONO % 3.1 % (3.0-9.0); NEUT # 10.3 10*3/uL (2.3-7.9); NEUT % 89.1 % (47.0-73.0); PLATELET COUNT AUTOMATED 162 10*3/uL (130-400); RED BLOOD COUNT 3.67 10*6/uL (4.10-5.10); RED CELL DISTRI WIDTH 14.3 % (0-14.5); WHITE BLOOD COUNT 11.6 10*3/uL (4.8-10.8)
[2020-09-03 08:30] LABS: ABG BASE EXCESS 14.4 mmol/L (-2.0-2.0); ARTERIAL BLOOD GAS PH 7.341 (7.35-7.45); ARTERIAL BLOOD GAS PO2 143.4 (80-90)
[2020-09-03 12:38] LABS: ARTERIAL BLOOD GAS PH 7.399 (7.35-7.45); ARTERIAL BLOOD GAS PO2 110.1 (80-90)
[2020-09-04] VITALS: BP 91/47
[2020-09-04 04:00] VITALS: BP 96/50
[2020-09-04 06:09] LABS: ALBUMIN 2.7 gm/dl (3.1-4.5); ALKALINE PHOSPHATASE 33 U/L (45-117); BUN 25 mg/dl (7-24); CHLORIDE 103 mmol/L (98-107); CREATININE 0.82 mg/dL (0.55-1.02); SGOT/AST 31 IU/L (3-35); SGPT/ALT 32 U/L (12-78); SODIUM 142 mmol/L (136-145); TOTAL PROTEIN 5.6 gm/dL (6.4-8.2)
[2020-09-04 08:00] VITALS: BP 111/57
[2020-09-04 08:44] LABS: ABG BASE EXCESS 7.1 mmol/L (-2.0-2.0); ARTERIAL BLOOD GAS PH 7.356 (7.35-7.45)
[2020-09-04 12:00] VITALS: BP 95/50
[2020-09-04 16:00] VITALS: BP 119/50
[2020-09-04 20:00] VITALS: BP 106/54
[2020-09-05] VITALS: BP 107/42
[2020-09-05 04:00] VITALS: BP 107/52
[2020-09-05 05:27] LABS: ALBUMIN 2.4 gm/dl (3.1-4.5); ALKALINE PHOSPHATASE 35 U/L (45-117); BUN 31 mg/dl (7-24); CHLORIDE 108 mmol/L (98-107); CREATININE 0.84 mg/dL (0.55-1.02); POTASSIUM 3.4 mmol/L (3.5-5.1); SGOT/AST 21 IU/L (3-35); SGPT/ALT 28 U/L (12-78); SODIUM 145 mmol/L (136-145); TOTAL PROTEIN 5.4 gm/dL (6.4-8.2)
[2020-09-05 05:59] LABS: HEMATOCRIT 34.9 % (37.0-47.0); LYMPH % 20.8 % (27.0-41.0); MEAN CELL VOLUME 100.6 fl (81.0-99.0); MEAN CORPUSCULAR HGB 30.5 pg (27.0-31.0); MEAN CORPUSCULAR HGB CONC 30.4 g/dl (33.0-37.0); MEAN PLATELET VOLUME 10.2 fl (9.6-12.3); MONO # 0.9 10*3/uL (0.1-1.0); MONO % 9.4 % (3.0-9.0); NEUT # 6.5 10*3/uL (2.3-7.9); NEUT % 69.4 % (47.0-73.0); PLATELET COUNT AUTOMATED 152 10*3/uL (130-400); RED BLOOD COUNT 3.47 10*6/uL (4.10-5.10); RED CELL DISTRI WIDTH 14.6 % (0-14.5); WHITE BLOOD COUNT 9.4 10*3/uL (4.8-10.8)
[2020-09-05 08:00] VITALS: BP 111/53
[2020-09-05 08:36] LABS: ABG BASE EXCESS 5.4 mmol/L (-2.0-2.0); ARTERIAL BLOOD GAS PH 7.361 (7.35-7.45)
[2020-09-05 12:00] VITALS: BP 154/68
[2020-09-05 16:00] VITALS: BP 123/67
[2020-09-05 20:14] VITALS: BP 118/53
[2020-09-06] VITALS: BP 88/39
[2020-09-06 06:30] VITALS: BP 108/54
[2020-09-06 06:50] LABS: BASO % 0.1 % (0.0-1.0); EOS % 0.1 % (1.0-4.0); LYMPH # 1.6 10*3/uL (1.3-4.4); LYMPH % 17.5 % (27.0-41.0); MEAN CELL VOLUME 99.4 fl (81.0-99.0); MEAN CORPUSCULAR HGB 30.1 pg (27.0-31.0); MEAN CORPUSCULAR HGB CONC 30.3 g/dl (33.0-37.0); MEAN PLATELET VOLUME 10.1 fl (9.6-12.3); MONO # 0.7 10*3/uL (0.1-1.0); MONO % 7.6 % (3.0-9.0); NEUT # 6.9 10*3/uL (2.3-7.9); NEUT % 74.1 % (47.0-73.0); PLATELET COUNT AUTOMATED 153 10*3/uL (130-400); RED BLOOD COUNT 3.62 10*6/uL (4.10-5.10); RED CELL DISTRI WIDTH 14.6 % (0-14.5); WHITE BLOOD COUNT 9.3 10*3/uL (4.8-10.8)
[2020-09-06 07:46] LABS: BUN 28 mg/dl (7-24); CHLORIDE 108 mmol/L (98-107); CREATININE 0.68 mg/dL (0.55-1.02); POTASSIUM 3.5 mmol/L (3.5-5.1); SODIUM 143 mmol/L (136-145)
[2020-09-06 07:56] LABS: ABG BASE EXCESS 5.1 mmol/L (-2.0-2.0); ARTERIAL BLOOD GAS PH 7.401 (7.35-7.45); ARTERIAL BLOOD GAS PO2 93.6 (80-90)
[2020-09-06 08:00] VITALS: BP 120/72
[2020-09-06 12:00] VITALS: BP 97/40
[2020-09-06 20:00] VITALS: BP 101/40
[2020-09-07] VITALS: BP 111/55
[2020-09-07 08:00] VITALS: BP 154/66
[2020-09-07 12:00] VITALS: BP 100/50
[2020-09-07 16:00] VITALS: BP 110/46
[2020-09-07] MEDS ORDERED: IMDUR SA30 MG PO (16:59)
[2020-09-07] MEDS ORDERED: FUROSEMIDE20 M1 PO (16:59)
[2020-09-07] MEDS ORDERED: PREDNISONE10 MG PO (16:59)
== END 2020-09-07 19:33 | DRG 871 ==
LOC: ED 12:06 → EDHOLD 14:00 → 4E 14:00 → ICCU 14:00 → 4E 14:27 → ICCU 09-03 09:47 → 4E 09-05 18:04
PROVIDERS: Emergency Medicine; Internal Medicine; Internal Medicine Critical Care Medicine; Registered Nurse; Social Worker Clinical; ADMIT Family Medicine; ATTEND Family Medicine
PROC: BD1BYZZ Fluoroscopy of Mouth/Oropharynx using Other Contrast (ICD-10-PCS; 2020-08-31)
PROC: 5A09357 Assistance with Respiratory Ventilation, Less than 24 Consecutive Hours, Continuous Positive Airway Pressure (ICD-10-PCS; principal; 2020-09-03)
PROC: 5A09357 Assistance with Respiratory Ventilation, Less than 24 Consecutive Hours, Continuous Positive Airway Pressure (ICD-10-PCS; 2020-09-04)
PROC: 5A09357 Assistance with Respiratory Ventilation, Less than 24 Consecutive Hours, Continuous Positive Airway Pressure (ICD-10-PCS; 2020-09-05)
PROC: 4A02XM4 Measurement of Cardiac Total Activity, External Approach (ICD-10-PCS; 2020-09-05)
PROC: 3E073KZ Introduction of Other Diagnostic Substance into Coronary Artery, Percutaneous Approach (ICD-10-PCS; 2020-09-05)
PROC: 5A09357 Assistance with Respiratory Ventilation, Less than 24 Consecutive Hours, Continuous Positive Airway Pressure (ICD-10-PCS; 2020-09-06)
PROC: 5A09357 Assistance with Respiratory Ventilation, Less than 24 Consecutive Hours, Continuous Positive Airway Pressure (ICD-10-PCS; 2020-09-07)
DX: A41.9 Sepsis, unspecified organism (principal); I21.4 Non-ST elevation (NSTEMI) myocardial infarction; J16.0 Chlamydial pneumonia; J96.22 Acute and chronic respiratory failure with hypercapnia; I50.33 Acute on chronic diastolic (congestive) heart failure; J96.21 Acute and chronic respiratory failure with hypoxia; E87.3 Alkalosis; Z68.1 Body mass index [BMI] 19.9 or less, adult; I47.1 Supraventricular tachycardia; I13.0 Hypertensive heart and chronic kidney disease with heart failure and stage 1 through stage 4 chronic kidney disease, or unspecified chronic kidney disease; I25.10 Atherosclerotic heart disease of native coronary artery without angina pectoris; F41.1 Generalized anxiety disorder; M81.0 Age-related osteoporosis without current pathological fracture; R54 Age-related physical debility; N18.30 Chronic kidney disease, stage 3 unspecified; F32.9 Major depressive disorder, single episode, unspecified; E78.5 Hyperlipidemia, unspecified; D53.9 Nutritional anemia, unspecified; R73.9 Hyperglycemia, unspecified; R13.10 Dysphagia, unspecified; I27.20 Pulmonary hypertension, unspecified; J43.9 Emphysema, unspecified; E87.6 Hypokalemia; Z99.81 Dependence on supplemental oxygen; Z88.0 Allergy status to penicillin; Z88.8 Allergy status to other drugs, medicaments and biological substances; Z91.041 Radiographic dye allergy status; Z90.49 Acquired absence of other specified parts of digestive tract; Z90.710 Acquired absence of both cervix and uterus; Z87.891 Personal history of nicotine dependence; Z82.49 Family history of ischemic heart disease and other diseases of the circulatory system; I25.2 Old myocardial infarction; Z83.6 Family history of other diseases of the respiratory system; Z80.0 Family history of malignant neoplasm of digestive organs; Z20.822 Contact with and (suspected) exposure to COVID-19

== ENCOUNTER 2020-09-22 10:18 | Inpatient (IN) | payer MEDICARE ==
[~2020-09-22] VITALS: Ht 162.5 cm; Wt 44.0 kg
[~2020-09-22 10:18] MED LIST changes: +ANORO ELLIPTA1 EACH INH; +DIOVAN320 MG PO; +DRONABINOL2.5 MG PO; +FUROSEMIDE20 M1 PO; +NIFEDIPINE30 MG PO
[2020-09-22 10:19] VITALS: BP 163/57
[2020-09-22 11:11] LABS: HEMATOCRIT 41.3 % (37.0-47.0); MEAN CELL VOLUME 110.4 fl (81.0-99.0); MEAN CORPUSCULAR HGB 30.5 pg (27.0-31.0); MEAN CORPUSCULAR HGB CONC 27.6 g/dl (33.0-37.0); MEAN PLATELET VOLUME 10.6 fl (9.6-12.3); PLATELET COUNT AUTOMATED 125 10*3/uL (130-400); RED BLOOD COUNT 3.74 10*6/uL (4.10-5.10); RED CELL DISTRI WIDTH 15.1 % (0-14.5); WHITE BLOOD COUNT 13.3 10*3/uL (4.8-10.8)
[2020-09-22 11:22] LABS: ACT PARTIAL THROMBO TIME 23.9 SECONDS (20.0-32.1); INTERNATIONAL NORM RATIO 1.1 (2.0-3.5)
[2020-09-22 11:33] LABS: PLATELET SUFFICIENCY LOW (NORMAL); TOTAL CELLS COUNTED 100 #CELLS
[2020-09-22 11:34] LABS: ALKALINE PHOSPHATASE 69 U/L (45-117); BUN 29 mg/dl (7-24); CHLORIDE 114 mmol/L (98-107); CREATININE 0.85 mg/dL (0.55-1.02); SGOT/AST 54 IU/L (3-35); SGPT/ALT 80 U/L (12-78); SODIUM 156 mmol/L (136-145); TOTAL PROTEIN 6.4 gm/dL (6.4-8.2)
[2020-09-22 11:37] LABS: ABG BASE EXCESS 8.9 mmol/L (-2.0-2.0); ARTERIAL BLOOD GAS PH 7.204 (7.35-7.45); ARTERIAL BLOOD GAS PO2 110.8 (80-90)
[2020-09-22 15:14] VITALS: BP 119/39
[2020-09-22 16:00] VITALS: BP 126/92
[2020-09-22 17:30] LABS: ABG BASE EXCESS 8.7 mmol/L (-2.0-2.0); ARTERIAL BLOOD GAS PH 7.229 (7.35-7.45); ARTERIAL BLOOD GAS PO2 120.8 (80-90)
[2020-09-22] MEDS ORDERED: ACETAZOLAMIDE250 MG PO (18:06)
[2020-09-22] MEDS ORDERED: HYDROXYZINE HCL25 MG PO (18:11)
[2020-09-22 20:50] VITALS: BP 113/70
[2020-09-22 21:33] LABS: ABG BASE EXCESS 3.8 mmol/L (-2.0-2.0); ARTERIAL BLOOD GAS PH 7.3 (7.35-7.45); ARTERIAL BLOOD GAS PO2 95.9 (80-90)
[2020-09-23 00:12] VITALS: BP 131/59
[2020-09-23 06:12] LABS: HEMATOCRIT 36.3 % (37.0-47.0); MEAN CELL VOLUME 108.4 fl (81.0-99.0); MEAN CORPUSCULAR HGB 30.1 pg (27.0-31.0); MEAN CORPUSCULAR HGB CONC 27.8 g/dl (33.0-37.0); MEAN PLATELET VOLUME 11.2 fl (9.6-12.3); PLATELET COUNT AUTOMATED 107 10*3/uL (130-400); RED BLOOD COUNT 3.35 10*6/uL (4.10-5.10); WHITE BLOOD COUNT 7.2 10*3/uL (4.8-10.8)
[2020-09-23 06:24] LABS: ACT PARTIAL THROMBO TIME 28.3 SECONDS (20.0-32.1); INTERNATIONAL NORM RATIO 1.2 (2.0-3.5)
[2020-09-23 06:36] LABS: ALBUMIN 2.6 gm/dl (3.1-4.5); ALKALINE PHOSPHATASE 61 U/L (45-117); BUN 26 mg/dl (7-24); CHLORIDE 119 mmol/L (98-107); CREATININE 0.71 mg/dL (0.55-1.02); POTASSIUM 3.8 mmol/L (3.5-5.1); SGOT/AST 41 IU/L (3-35); SGPT/ALT 71 U/L (12-78); SODIUM 155 mmol/L (136-145); TOTAL PROTEIN 5.8 gm/dL (6.4-8.2)
[2020-09-23 07:04] LABS: TOTAL CELLS COUNTED 100 #CELLS
[2020-09-23 07:05] LABS: OVALOCYTES FEW; PLATELET SUFFICIENCY LOW (NORMAL)
[2020-09-23 08:00] VITALS: BP 143/77
[2020-09-23 09:59] LABS: ABG BASE EXCESS 7.8 mmol/L (-2.0-2.0); ARTERIAL BLOOD GAS PH 7.314 (7.35-7.45); ARTERIAL BLOOD GAS PO2 52.8 (80-90)
[2020-09-23 12:00] VITALS: BP 146/67
[2020-09-23 16:00] VITALS: BP 152/47
[2020-09-23 20:00] VITALS: BP 155/77
[2020-09-24] VITALS: BP 130/66
[2020-09-24 06:04] LABS: BASO % 0.1 % (0.0-1.0); HEMATOCRIT 35.7 % (37.0-47.0); LYMPH # 0.7 10*3/uL (1.3-4.4); LYMPH % 7.1 % (27.0-41.0); MEAN CELL VOLUME 106.9 fl (81.0-99.0); MEAN CORPUSCULAR HGB 30.2 pg (27.0-31.0); MEAN CORPUSCULAR HGB CONC 28.3 g/dl (33.0-37.0); MEAN PLATELET VOLUME 10.6 fl (9.6-12.3); MONO # 0.3 10*3/uL (0.1-1.0); MONO % 2.8 % (3.0-9.0); NEUT # 9.1 10*3/uL (2.3-7.9); NEUT % 89.4 % (47.0-73.0); NUCLEATED RED BLOOD CELL 0.2 % (0.0-0.0); PLATELET COUNT AUTOMATED 126 10*3/uL (130-400); RED BLOOD COUNT 3.34 10*6/uL (4.10-5.10); RED CELL DISTRI WIDTH 15.3 % (0-14.5); WHITE BLOOD COUNT 10.2 10*3/uL (4.8-10.8)
[2020-09-24 06:39] LABS: BUN 26 mg/dl (7-24); CHLORIDE 118 mmol/L (98-107); CREATININE 0.57 mg/dL (0.55-1.02); POTASSIUM 3.8 mmol/L (3.5-5.1); SODIUM 153 mmol/L (136-145)
[2020-09-24 08:00] VITALS: BP 148/70
[2020-09-24 08:04] LABS: ARTERIAL BLOOD GAS PH 7.262 (7.35-7.45); ARTERIAL BLOOD GAS PO2 259.8 (80-90)
[2020-09-24 12:00] VITALS: BP 122/68
[2020-09-24 16:00] VITALS: BP 122/68
[2020-09-24 16:35] LABS: ABG BASE EXCESS 9.1 mmol/L (-2.0-2.0); ARTERIAL BLOOD GAS PH 7.254 (7.35-7.45)
[2020-09-24 16:37] LABS: ARTERIAL BLOOD GAS PO2 13.7 (80-90)
[2020-09-24 17:50] VITALS: BP 149/60
[2020-09-24 20:00] VITALS: BP 121/53
[2020-09-25] VITALS: BP 97/70
[2020-09-25 04:34] VITALS: BP 157/51
[2020-09-25 06:36] LABS: ALBUMIN 2.7 gm/dl (3.1-4.5); BUN 25 mg/dl (7-24); CHLORIDE 118 mmol/L (98-107); POTASSIUM 3.7 mmol/L (3.5-5.1); SODIUM 155 mmol/L (136-145)
[2020-09-25 06:40] LABS: ALKALINE PHOSPHATASE 56 U/L (45-117); CREATININE 0.65 mg/dL (0.55-1.02); SGOT/AST 25 IU/L (3-35); SGPT/ALT 57 U/L (12-78); TOTAL PROTEIN 5.6 gm/dL (6.4-8.2)
[2020-09-25 06:58] LABS: HEMATOCRIT 35.6 % (37.0-47.0); MEAN CELL VOLUME 105.6 fl (81.0-99.0); MEAN CORPUSCULAR HGB 30.3 pg (27.0-31.0); MEAN CORPUSCULAR HGB CONC 28.7 g/dl (33.0-37.0); MEAN PLATELET VOLUME 10.9 fl (9.6-12.3); NUCLEATED RED BLOOD CELL 0.3 % (0.0-0.0); PLATELET COUNT AUTOMATED 122 10*3/uL (130-400); RED BLOOD COUNT 3.37 10*6/uL (4.10-5.10); RED CELL DISTRI WIDTH 15.3 % (0-14.5); WHITE BLOOD COUNT 9.7 10*3/uL (4.8-10.8)
[2020-09-25 07:46] LABS: TOTAL CELLS COUNTED 100 #CELLS
[2020-09-25 07:47] LABS: OVALOCYTES FEW; PLATELET SUFFICIENCY LOW (NORMAL); POLYCHROMASIA SLIGHT
[2020-09-25 08:20] VITALS: BP 113/64
[2020-09-25 10:39] LABS: ABG BASE EXCESS 8.3 mmol/L (-2.0-2.0); ARTERIAL BLOOD GAS PH 7.362 (7.35-7.45); ARTERIAL BLOOD GAS PO2 132.2 (80-90)
[2020-09-25 12:03] VITALS: BP 144/70
[2020-09-25 16:00] VITALS: BP 146/85
[2020-09-25 20:00] VITALS: BP 152/91
[2020-09-26] VITALS (8 sets, daily range): BP systolic 0–177; BP diastolic 0–100
[2020-09-26 06:25] LABS: CHLORIDE 114 mmol/L (98-107); POTASSIUM 3.8 mmol/L (3.5-5.1); SODIUM 149 mmol/L (136-145)
[2020-09-26 06:27] LABS: HEMATOCRIT 37.7 % (37.0-47.0); MEAN CELL VOLUME 103.3 fl (81.0-99.0); MEAN CORPUSCULAR HGB 30.4 pg (27.0-31.0); MEAN CORPUSCULAR HGB CONC 29.4 g/dl (33.0-37.0); MEAN PLATELET VOLUME 11.1 fl (9.6-12.3); NUCLEATED RED BLOOD CELL 0.3 % (0.0-0.0); PLATELET COUNT AUTOMATED 140 10*3/uL (130-400); RED BLOOD COUNT 3.65 10*6/uL (4.10-5.10); RED CELL DISTRI WIDTH 15.4 % (0-14.5); WHITE BLOOD COUNT 11.3 10*3/uL (4.8-10.8)
[2020-09-26 06:39] LABS: BUN 24 mg/dl (7-24); CREATININE 0.62 mg/dL (0.55-1.02)
[2020-09-26 07:50] LABS: TOTAL CELLS COUNTED 100 #CELLS
[2020-09-26 07:51] LABS: PLATELET SUFFICIENCY NORMAL (NORMAL)
[2020-09-26 09:01] LABS: ABG BASE EXCESS 6.3 mmol/L (-2.0-2.0); ARTERIAL BLOOD GAS PH 7.394 (7.35-7.45); ARTERIAL BLOOD GAS PO2 89.7 (80-90)
[2020-09-27] VITALS: BP 133/67
[2020-09-27 04:00] VITALS: BP 118/61
[2020-09-27 06:05] LABS: BUN 26 mg/dl (7-24); CHLORIDE 108 mmol/L (98-107); CREATININE 0.71 mg/dL (0.55-1.02); POTASSIUM 3.5 mmol/L (3.5-5.1); SODIUM 145 mmol/L (136-145)
[2020-09-27 06:22] LABS: HEMATOCRIT 34.4 % (37.0-47.0); LYMPH # 1.1 10*3/uL (1.3-4.4); LYMPH % 9.6 % (27.0-41.0); MEAN CELL VOLUME 100.6 fl (81.0-99.0); MEAN CORPUSCULAR HGB 30.7 pg (27.0-31.0); MEAN CORPUSCULAR HGB CONC 30.5 g/dl (33.0-37.0); MEAN PLATELET VOLUME 11.3 fl (9.6-12.3); MONO # 0.7 10*3/uL (0.1-1.0); MONO % 6.2 % (3.0-9.0); NEUT # 9.8 10*3/uL (2.3-7.9); NEUT % 83.6 % (47.0-73.0); NUCLEATED RED BLOOD CELL 0.3 % (0.0-0.0); PLATELET COUNT AUTOMATED 127 10*3/uL (130-400); RED BLOOD COUNT 3.42 10*6/uL (4.10-5.10); RED CELL DISTRI WIDTH 15.1 % (0-14.5); WHITE BLOOD COUNT 11.7 10*3/uL (4.8-10.8)
[2020-09-27 08:00] VITALS: BP 127/65
[2020-09-27 12:00] VITALS: BP 100/36
== END 2020-09-27 15:20 | disposition hospice, inpatient (51) | DRG 871 ==
LOC: ED 10:18 → EDHOLD 13:44 → ICCU 13:44 → 5E 14:15 → ICCU 09-24 17:53
PROVIDERS: Family Medicine; Internal Medicine; Internal Medicine Critical Care Medicine; ADMIT Emergency Medicine; ATTEND Emergency Medicine
PROC: 5A09357 Assistance with Respiratory Ventilation, Less than 24 Consecutive Hours, Continuous Positive Airway Pressure (ICD-10-PCS; 2020-09-23)
PROC: 5A09457 Assistance with Respiratory Ventilation, 24-96 Consecutive Hours, Continuous Positive Airway Pressure (ICD-10-PCS; 2020-09-24)
PROC: 5A12012 Performance of Cardiac Output, Single, Manual (ICD-10-PCS; principal; 2020-09-26)
PROC: 5A09357 Assistance with Respiratory Ventilation, Less than 24 Consecutive Hours, Continuous Positive Airway Pressure (ICD-10-PCS; 2020-09-26)
DX: A41.9 Sepsis, unspecified organism (principal); J96.22 Acute and chronic respiratory failure with hypercapnia; G93.41 Metabolic encephalopathy; I46.9 Cardiac arrest, cause unspecified; J96.21 Acute and chronic respiratory failure with hypoxia; J44.1 Chronic obstructive pulmonary disease with (acute) exacerbation; E87.0 Hyperosmolality and hypernatremia; E44.1 Mild protein-calorie malnutrition; I13.0 Hypertensive heart and chronic kidney disease with heart failure and stage 1 through stage 4 chronic kidney disease, or unspecified chronic kidney disease; I50.42 Chronic combined systolic (congestive) and diastolic (congestive) heart failure; J98.11 Atelectasis; Z68.1 Body mass index [BMI] 19.9 or less, adult; Z66 Do not resuscitate; R53.1 Weakness; D53.9 Nutritional anemia, unspecified; R73.9 Hyperglycemia, unspecified; D69.6 Thrombocytopenia, unspecified; E78.5 Hyperlipidemia, unspecified; F41.1 Generalized anxiety disorder; M81.0 Age-related osteoporosis without current pathological fracture; R74.01 Elevation of levels of liver transaminase levels; E87.8 Other disorders of electrolyte and fluid balance, not elsewhere classified; E83.41 Hypermagnesemia; I25.10 Atherosclerotic heart disease of native coronary artery without angina pectoris; N18.30 Chronic kidney disease, stage 3 unspecified; R65.20 Severe sepsis without septic shock; I48.0 Paroxysmal atrial fibrillation; I35.0 Nonrheumatic aortic (valve) stenosis; M19.90 Unspecified osteoarthritis, unspecified site; E86.0 Dehydration; J98.6 Disorders of diaphragm; J45.40 Moderate persistent asthma, uncomplicated; Z51.5 Encounter for palliative care; Z88.0 Allergy status to penicillin; Z88.8 Allergy status to other drugs, medicaments and biological substances; Z91.041 Radiographic dye allergy status; Z88.6 Allergy status to analgesic agent; Z90.49 Acquired absence of other specified parts of digestive tract; Z90.710 Acquired absence of both cervix and uterus; Z87.891 Personal history of nicotine dependence; Z80.0 Family history of malignant neoplasm of digestive organs; Z82.5 Family history of asthma and other chronic lower respiratory diseases; Z82.49 Family history of ischemic heart disease and other diseases of the circulatory system; I25.2 Old myocardial infarction; Z87.01 Personal history of pneumonia (recurrent); Z79.899 Other long term (current) drug therapy; Z79.02 Long term (current) use of antithrombotics/antiplatelets

== ENCOUNTER 2020-09-27 15:35 | Inpatient (IN) | payer OTHER, MEDICARE ==
[~2020-09-27] VITALS: Ht 160 cm; Wt 44.0 kg
[~2020-09-27 15:35] MED LIST changes: +ACETAZOLAMIDE250 MG PO; +HYDROXYZINE HCL25 MG PO
[2020-09-27 15:50] VITALS: BP 107/59
== END 2020-09-28 14:00 | DRG 871 ==
LOC: 4E 15:35 → ICCU 15:35 → 4E 20:42
PROVIDERS: ADMIT Emergency Medicine; ATTEND Emergency Medicine
PROC: 5A09357 Assistance with Respiratory Ventilation, Less than 24 Consecutive Hours, Continuous Positive Airway Pressure (ICD-10-PCS; principal; 2020-09-27)
PROC: 5A0935A Assistance with Respiratory Ventilation, Less than 24 Consecutive Hours, High Flow/Velocity Cannula (ICD-10-PCS; 2020-09-27)
DX: A41.9 Sepsis, unspecified organism (principal); J96.22 Acute and chronic respiratory failure with hypercapnia; G93.41 Metabolic encephalopathy; E44.1 Mild protein-calorie malnutrition; I50.30 Unspecified diastolic (congestive) heart failure; J44.1 Chronic obstructive pulmonary disease with (acute) exacerbation; E87.0 Hyperosmolality and hypernatremia; I13.0 Hypertensive heart and chronic kidney disease with heart failure and stage 1 through stage 4 chronic kidney disease, or unspecified chronic kidney disease; Z68.1 Body mass index [BMI] 19.9 or less, adult; R65.20 Severe sepsis without septic shock; Z51.5 Encounter for palliative care; D53.9 Nutritional anemia, unspecified; R73.9 Hyperglycemia, unspecified; E88.09 Other disorders of plasma-protein metabolism, not elsewhere classified; R74.01 Elevation of levels of liver transaminase levels; D72.829 Elevated white blood cell count, unspecified; D69.6 Thrombocytopenia, unspecified; E83.41 Hypermagnesemia; I46.9 Cardiac arrest, cause unspecified; I25.10 Atherosclerotic heart disease of native coronary artery without angina pectoris; F32.9 Major depressive disorder, single episode, unspecified; F41.1 Generalized anxiety disorder; N18.30 Chronic kidney disease, stage 3 unspecified; M81.0 Age-related osteoporosis without current pathological fracture; Z66 Do not resuscitate; E78.5 Hyperlipidemia, unspecified; Z99.81 Dependence on supplemental oxygen; Z79.899 Other long term (current) drug therapy